=== PATIENT | male | born 1975 | race Caucasian/White ===

== ENCOUNTER 2016-06-14 20:48 | Emergency (ER) | payer SELFPAY | END 2016-06-15 00:45 | disposition home or self-care (01) | LOC: ER1 20:48 | DX: R07.81 Pleurodynia (principal) | CPT/HCPCS: 71020; 96372; 99284; J1885 ==

== ENCOUNTER 2020-03-22 10:33 | Emergency (ER) | payer OTHER ==
[2020-03-22] MEDS ORDERED: NAPROSYN500 MG PO (11:38)
[2020-03-22] MEDS ORDERED: AMOXICILLIN500 M1 PO (11:38)
== END 2020-03-22 12:00 | disposition home or self-care (01) ==
LOC: ER1 10:33
DX: K05.10 Chronic gingivitis, plaque induced (principal); K02.9 Dental caries, unspecified; I10 Essential (primary) hypertension; E03.9 Hypothyroidism, unspecified; F17.200 Nicotine dependence, unspecified, uncomplicated; Z79.899 Other long term (current) drug therapy
CPT/HCPCS: 99282

== ENCOUNTER 2020-09-22 20:03 | Emergency (ER) | payer OTHER ==
[~2020-09-22 20:03] MED LIST: AMOXICILLIN500 M1 PO; NAPROSYN500 MG PO
[2020-09-22] MEDS ORDERED: Voltaren Gel 1 % TOP (23:22)
== END 2020-09-22 23:35 | disposition home or self-care (01) ==
LOC: ER1 20:03
DX: S83.92XA Sprain of unspecified site of left knee, initial encounter (principal); I10 Essential (primary) hypertension; M10.9 Gout, unspecified; W22.8XXA Striking against or struck by other objects, initial encounter; Y92.89 Other specified places as the place of occurrence of the external cause; Y99.0 Civilian activity done for income or pay
CPT/HCPCS: 73700; 99283